=== PATIENT | male | born 1970 | race American Indian/Alaskan Native ===

== ENCOUNTER 2017-01-11 08:34 | Emergency (ER) | payer OTHER ==
[2017-01-11 09:15] VITALS: BP 147/91
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
== END 2017-01-11 10:57 | disposition home or self-care (01) ==
LOC: ED 08:34
DX: S39.012A Strain of muscle, fascia and tendon of lower back, initial encounter (principal); I10 Essential (primary) hypertension; F17.200 Nicotine dependence, unspecified, uncomplicated; V49.49XA Driver injured in collision with other motor vehicles in traffic accident, initial encounter; Y93.89 Activity, other specified; Y92.89 Other specified places as the place of occurrence of the external cause; Y99.8 Other external cause status
CPT/HCPCS: 99282

== ENCOUNTER 2018-10-25 22:18 | Emergency (ER) | payer OTHER ==
--- NOTE | 2018-10-26 00:29 | XRay Report ---
RIGHT SHOULDER 3 VIEWS. INDICATION / CLINICAL INFORMATION: right shoulder pain COMPARISON: None available. FINDINGS: BONES / JOINT(S): No acute fracture or subluxation. No significant arthritis. SOFT TISSUES: No significant abnormality. ADDITIONAL FINDINGS: None. Signer Name: Duane Rainey MD Signed: 10/26/2018 12:24 AM Workstation Name: [id number]
--- NOTE | 2018-10-26 00:30 | XRay Report ---
CERVICAL SPINE 3 VIEWS INDICATION / CLINICAL INFORMATION: neck pain COMPARISON: None available. FINDINGS: BONES / JOINT(S): No acute fracture or subluxation. Mild DDD C5-C6. SOFT TISSUES: No significant abnormality. ADDITIONAL FINDINGS: None. Signer Name: Duane Rainey MD Signed: 10/26/2018 12:25 AM Workstation Name: [id number]
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
[2018-10-26 02:55] VITALS: BP 157/98
== END 2018-10-26 01:25 | disposition home or self-care (01) ==
LOC: ED 22:18
DX: S16.1XXA Strain of muscle, fascia and tendon at neck level, initial encounter (principal); M25.512 Pain in left shoulder; I10 Essential (primary) hypertension; F17.200 Nicotine dependence, unspecified, uncomplicated; Z79.899 Other long term (current) drug therapy; V89.2XXA Person injured in unspecified motor-vehicle accident, traffic, initial encounter; Y93.89 Activity, other specified; Y92.488 Other paved roadways as the place of occurrence of the external cause; Y99.8 Other external cause status
CPT/HCPCS: 72040; 99283